=== PATIENT | female | born 1995 | race Caucasian/White ===

== ENCOUNTER 2024-04-20 06:06 | Observation (INO) | payer SELFPAY ==
[~2024-04-20] VITALS: Ht 152.4 cm; Wt 93.3 kg
[2024-04-20] VITALS (16 sets, daily range): BP systolic 102–137; BP diastolic 48–94
[~2024-04-20 06:06] MED LIST: METHOCARBAMOL500 MG PO; MOTRIN400 MG/TAB PO
--- NOTE | 2024-04-20 06:08 | NUR ---
PT TO RM #3 WITH STEADY GAIT, PT AMB TO BR FOR ATTEMPT OR URINE SPECIMEN.
[2024-04-20] MEDS ORDERED: ONDANSETRON HCl 4 MG/2 ML SDV IV ONE ×2 (06:20→09:35)
[2024-04-20] MEDS ORDERED: SODIUM CHLORIDE 0.9% 1,000 ML IV ONE (06:20)
--- NOTE | 2024-04-20 06:39 | NUR ---
PT MEDICTAED PER MD ORDERS. PT UPDATED ON POC, AWAITING FOR RESULTS/SCANS AT THIS TIME. PT VOICES UNDERSTADNING WITH NO FURTHER QUESTIONS. PT CALL LIGHT WITHIN REACH.
[2024-04-20 06:40] LABS: URINE BILIRUBIN - DIPSTICK Negative (NEGATIVE); URINE BLOOD DIPSTICK Small (NEGATIVE); URINE COLOR Yellow; URINE GLUCOSE - DIPSTICK Negative (NEGATIVE); URINE KETONE Negative (NEGATIVE); URINE LEUK ESTERASE Negative (NEGATIVE); URINE NITRITE - DIPSTICK Negative (Negative); URINE PH 5.5 (4.5-8.0); URINE PROTEIN - DIPSTICK Negative (NEG-TRACE); URINE SPECIFIC GRAVITY 1.025; URINE UROBILINOGEN - DIPSTICK 0.2 E.U./dL (0.2)
[2024-04-20 06:40] LABS: BASO% 0.1 % (0-3); EOS% 0.1 % (0-8); HEMATOCRIT 45.8 % (37.0-47.0); HEMOGLOBIN 15.8 g/dl (12.0-16.0); IMMATURE GRANULOCYTES 0.3 % (0.0-5.0); LYMPH% 2.8 % (15-41); MEAN CELL VOLUME 97.9 fL CALC (80.0-100.0); MEAN CORPUSCULAR HGB 33.8 pG CALC (26.0-32.0); MEAN CORPUSCULAR HGB CONC 34.5 g/dL CAL (32.0-36.0); MONO% 4.8 % (2-13); NEUT# 24.43 thou/uL (2.00-7.15); NEUT% 91.9 % (42-76); RED BLOOD COUNT 4.68 mill/uL (4.20-5.60); RED CELL DISTRI WIDTH 11.8 % (11.5-15.5)
--- NOTE | 2024-04-20 06:46 | NUR ---
REPORT GIVEN TO SYMONE DRAKE AND CARE RELINQUISHED AT THIS TIME. PT AWAITING RESULTS. CALL LIGHT WITHIN REACH.
[2024-04-20 06:47] LABS: URINE BACTERIA FEW hpf; URINE SQUAMOUS EPITHELIAL CELL FEW EPI/hpf (0-FEW); URINE WBC 0-2 WBC/hpf (0-5)
[2024-04-20] MEDS ORDERED: PIPERACILLIN Sodium-Tazobactam 3.375 GM in SODIUM CHLORIDE 0.9% 100 ML IV ONE (07:10)
[2024-04-20 07:14] LABS: CREATININE 0.7 mg/dL (0.5-1.0); POTASSIUM 4.3 mmol/l (3.5-5.1); TOTAL PROTEIN 7.9 g/dL (6.3-8.2)
[2024-04-20] MEDS ORDERED: KETOROLAC TROMETHAMINE 30 MG/ML SDV IV ONE (07:50)
[2024-04-20] MEDS ORDERED: MORPHINE SULFATE 4 MG/ML VIAL IV ONE (08:55)
--- NOTE | 2024-04-20 11:08 | NUR ---
REPORT RECEIVED FROM SYMONE DRAKE
--- NOTE | 2024-04-20 11:17 | NUR ---
PT ARRIVED TO MED/SURG ROOM 264 IN STABLE CONDITION VIA WC ACCOMPANIED BY STAFF MEMBER AND FIANCE. PT AMBULATED TO STANDING SCALE AND BEDSIDE WITH A STEADY GAIT.PT A&O X4, ORIENTED TO ROOM AND CALL LIGHT SYSTEM;PT REPORTS ABDOMINAL PAIN,N/V, AND DIARRHEA SINCE 2AM;ASSESSMENT COMPLETED;RESPIRATIONS EVEN AND UNLABORED ON RA, CLEAR LUNG SOUNDS;ABDOMEN SOFT ON PALPATION AND ACTIVE IN ALL 4 QUADRANTS,LAST BM 04/20/24;STRONG PEDAL PULSES;SKIN INTACT;#20G TO LAC FLUSHED AND PATENT,SITE APPEARS HEALTHY AND LR STARTED AT 150ML/HR PER ORDER;PT TO BE MEDICATED WITH PRN ZOFRAN 4MG IVP FOR COMPLAINTS OF NAUSEA. ALLERGY BAND APPLIED TO RIGHT ARM;PT DENIES ANY ADDITIONAL NEEDS AND IS ENCOURAGED TO CALL FOR ASSISTANCE IF NEEDED;FALL PRECAUTIONS IN PLACE WITH BED IN THE LOWEST POSITION AND CALL LIGHT IN REACH;FREQUENT ROUNDS MADE.
--- NOTE | 2024-04-20 11:25 | NUR ---
AT BEDSIDE DISCUSSING POC WITH PT.
[2024-04-20] MEDS ORDERED: LACTATED RINGER'S 1,000 ML IV PRN (11:35)
[2024-04-20] MEDS ORDERED: MAGNESIUM HYDROXIDE 30 ML UDC PO PRN (11:35)
[2024-04-20] MEDS ORDERED: ONDANSETRON HCl 4 MG/2 ML SDV IV PRN (11:35)
[2024-04-20] MEDS ORDERED: ACETAMINOPHEN 325 MG/TAB PO PRN (11:35)
[2024-04-20] MEDS ORDERED: PIPERACILLIN Sodium-Tazobactam 3.375 GM in SODIUM CHLORIDE 0.9% 100 ML IV SCH (12:00)
--- NOTE | 2024-04-20 13:44 | NUR ---
PT REPORTS HEARTBURN PAIN AND REQUESTS MEDICATION. CALL PLACED TO . AWAITING NEW ORDERS.
[2024-04-20] MEDS ORDERED: PANTOPRAZOLE SODIUM Sesquihydr 40 MG/TAB PO SCH (14:00)
--- NOTE | 2024-04-20 15:15 | NUR ---
PT RESTING IN SEMI FOWLERS POSITION WITH FIANCE AT BEDSIDE;RESPIRATIONS EVEN AND UNLABORED ON RA;PT DENIES ANY CURRENT PAIN OR NEEDS;IV SITE TO LAC REMAINS PATENT INFUSING LR @ 150ML/HR PER ORDER;PT ENCOURAGED TO CALL FOR ASSISTANCE IF NEEDED;FALL PRECAUTIONS REMAIN IN PLACE WITH BED IN THE LOWEST POSITION AND CALL LIGHT IN REACH;FREQUENT ROUNDS MADE.
--- NOTE | 2024-04-20 19:43 | NUR ---
Pt is alert and orient. She is able to make needs known. Assessment complete. Pt breathing is even and non-labored on room air. NO n/v since this morning. Skin is intact. Safety measures in place. Bed in low position with call light within reach.
--- NOTE | 2024-04-21 00:10 | NUR ---
Pt is up in bed wathcing television. No distress noted. Breathing remains even and non-labored on room air. Bed in low position with call light within reach.
[2024-04-21 03:06] VITALS: BP 121/69
--- NOTE | 2024-04-21 04:10 | NUR ---
Pt is up watching televison. PRN tylenol adminstered for headache and abdominal pain with good effect. No distress noted at this time. Pt is breathing even and non-labored. Bed in low position with call light within reach.
[2024-04-21 05:20] LABS: BASO% 0.3 % (0-3); EOS% 0.9 % (0-8); IMMATURE GRANULOCYTES 0.3 % (0.0-5.0); LYMPH% 13.5 % (15-41); MEAN CELL VOLUME 100.9 fL CALC (80.0-100.0); MEAN CORPUSCULAR HGB 34.6 pG CALC (26.0-32.0); MEAN CORPUSCULAR HGB CONC 34.3 g/dL CAL (32.0-36.0); MONO% 7.2 % (2-13); NEUT# 5.75 thou/uL (2.00-7.15); NEUT% 77.8 % (42-76); RED BLOOD COUNT 3.5 mill/uL (4.20-5.60); RED CELL DISTRI WIDTH 12.2 % (11.5-15.5)
[2024-04-21 05:24] LABS: HEMATOCRIT 35.3 % (37.0-47.0); HEMOGLOBIN 12.1 g/dl (12.0-16.0)
[2024-04-21 05:35] LABS: BILIRUBIN, TOTAL 0.7 mg/dL (0.02-1.3); CREATININE 0.7 mg/dL (0.5-1.0); MAGNESIUM 1.5 mg/dL (1.6-2.3)
[2024-04-21 05:43] LABS: ALBUMIN 3.2 g/dL (3.2-5.0); POTASSIUM 3.4 mmol/l (3.5-5.1); TOTAL PROTEIN 5.4 g/dL (6.3-8.2)
[2024-04-21 06:53] VITALS: BP 105/50
--- NOTE | 2024-04-21 07:50 | NUR ---
PATIENT A/O X3; ROOM AIR; BREATHING UNLABORED; DENIED ANY N/V; COMPLAINTS OF DIARRHEA; IV SITE CLEAN AND INTCAT SALINE LOCKED AT THIS TIEM; NO S.S OF DISTRESS; COMPLAINTS OF PAIN IN ABD AREA 11/14; AT THIS TIME; ASSESMENT COMPLETED AT THIS TIEM; PATEINT SITTING SEMI SANTOS IN BED EATING BREAKFAST WITH NO ISSUES; CALL LIGHT WITHIN REACH;VERBALIZED UNDERSTANDING ON HOW TO USE,PERSONAL ITEMS WITHIN REACH; BED IN LOWEST POSTION; SAFETY MEASURES IN PLACE
[2024-04-21] MEDS ORDERED: ONDANSETRON4 MG PO (10:03)
[2024-04-21] MEDS ORDERED: PROTONIX40 M2 PO (10:03)
--- NOTE | 2024-04-21 11:24 | NUR ---
IV site discontinued, cath intact. No edema , no redness, voices no discomfort. Discharge instructions given. Patient verbalizes understanding of same. Discharged in stable condition via Ambulatory to Home with family. All belongings sent with pt.
--- NOTE | 2024-04-24 11:08 | NUR ---
discharge follow up call completed 04/08=. Patient states she is doing well and has had no issues since discharge. Patient has taken prescibed medication as directed. Patient intends to establish with a new PCP at the beginning of the new year. No needs or concerns verbalized at this time.
== END 2024-04-21 11:22 | disposition home or self-care (01) | DRG 392 ==
LOC: ED 06:06 → ED-I 10:25 → ED 10:38 → MS2 10:39
PROVIDERS: Family Medicine; ADMIT Internal Medicine; ATTEND Internal Medicine
DX: R11.2 Nausea with vomiting, unspecified (principal); R10.84 Generalized abdominal pain; D72.829 Elevated white blood cell count, unspecified; N20.0 Calculus of kidney; F41.9 Anxiety disorder, unspecified; F32.A Depression, unspecified
CPT/HCPCS: G0378; J2405; J2543